=== PATIENT | male | born 1990 | race Two or more races ===

== ENCOUNTER 2017-06-17 23:26 | Emergency (ER) | payer BC ==
[2017-06-17 23:31] VITALS: BP 134/82; PULSE 80; TEMP 98.4; BMI 33.9
[2017-06-18] MEDS ORDERED: SODIUM CHLORIDE 0.9% 1000 ML INFUS.BAG IV ONE
--- NOTE | 2017-06-18 00:18 | PDOC ---
History of Present Illness - General Chief Complaint: Lightheaded Stated Complaint: DIZZYNESS AND NAUSEA - History of Present Illness Initial Comments: 06/18/17 06:58 ate out at restaurant later, developed nausea, stomach cramping, diarrhea, and dizziness no travel, no recent abx friend who ate out with him felt similar no rash no fever pain is moderate in intensity, crampy, generalized, no radiation pmh: denies fhx: noncontributory ros: reviewed and otherwise negative o/e NAD no diaphoresis noniecteric EOMI mmm no adenopathy cta rrr abd nt no rash a/p food poisoning versus AGE imporved after 2L NS in ED at time of dc, tolerating PO, abd nt Past History - Past Medical History Allergies/Adverse Reactions: Allergies Allergy/AdvReac Type Severity Reaction Status Date / Time No Known Allergies Allergy Verified 06/17/17 23:40 Home Medications: Ambulatory Orders NK [No Known Home Medication] 06/17/17 COPD: No - Suicide/Smoking/Psychosocial Hx Smoking History: Never smoked Information on smoking cessation initiated: No Hx Alcohol Use: No Drug/Substance Use Hx: No Substance Use Type: None *Physical Exam - Vital Signs Last Vital Signs Temp Pulse Resp BP Pulse Ox 98.4 F 80 18 134/82 99 06/17/17 23:27 06/17/17 23:27 06/17/17 23:27 06/17/17 23:27 06/17/17 23:27 *DC/Admit/Observation/Transfer Diagnosis at time of Disposition: Food poisoning Qualifiers: Encounter type: initial encounter Injury intent: accidental or unintentional Qualified Code(s): T62.91XA - Toxic effect of unspecified noxious substance eaten as food, accidental (unintentional), initial encounter - Discharge Dispostion Disposition: HOME Condition at time of disposition: Good - Referrals - Patient Instructions Printed Discharge Instructions: DI for Food Poisoning - Post Discharge Activity
== END 2017-06-18 00:47 | disposition home or self-care (01) ==
LOC: FER 23:26
PROC: 3E0337Z Introduction of Electrolytic and Water Balance Substance into Peripheral Vein, Percutaneous Approach (ICD-10-PCS; principal; 2017-06-17)
DX: T62.91XA Toxic effect of unspecified noxious substance eaten as food, accidental (unintentional), initial encounter (principal)
CPT/HCPCS: 99282-25